=== PATIENT | male | born 1995 | race Caucasian/White ===

== ENCOUNTER 2018-10-04 14:23 | Emergency (ER) | payer SELFPAY ==
[~2018-10-04] VITALS: Ht 152.4 cm; Wt 56.8 kg
[2018-10-04 14:28] VITALS: BP 119/55
--- NOTE | 2018-10-04 14:55 | NUR ---
PATIENT PRESENTS TO ED WITH C/O PENILE RASH AND INFLAMMATION. PATIENT STATES PAIN OF 7/10 AT THIS TIME; VSS; PATIENT POSITIONED FOR COMFORT; HOB ELEVATED; BEDRAILS UP X1; BED DOWN. ER MD TO EVALUATE PT.
--- NOTE | 2018-10-04 15:00 | NUR ---
DR OBRIEN AT BEDSIDE EVALUATION PT.
[2018-10-04 15:13] VITALS: BP 103/67
[2018-10-04 16:03] LABS: APPEARANCE,URINE CLEAR (CLEAR); BILIRUBIN,URINE NEGATIVE (NEGATIVE); BLOOD, URINE NEGATIVE (NEGATIVE); COLOR,URINE YELLOW (YELLOW); LEUKOCYTE ESTERASE ,URINE 1+ (NEGATIVE); NITRITE, URINE NEGATIVE (NEGATIVE); PH,URINE 6.5 (5.0-9.0); UGLUCOSE NEGATIVE (NEGATIVE)
[2018-10-04 16:19] LABS: RBC,URINE 0 /HPF (0-5); WBC,URINE 0-5 /HPF (0-5)
== END 2018-10-04 15:14 | disposition home or self-care (01) ==
LOC: MED 14:23
DX: N39.0 Urinary tract infection, site not specified (principal)
CPT/HCPCS: 81001; 87086; 99283